=== PATIENT | male | born 1955 | race Hispanic/Latino ===

== ENCOUNTER 2016-12-14 12:52 | Emergency (ER) | payer BC ==
[2016-12-14] MEDS ORDERED: ASPIRIN 81 MG (BABY) CHEWABLE TABLET PO ONE (13:01)
[2016-12-14] MEDS ORDERED: NORMAL SALINE 10 ML SYRINGE FLUSH IVP PRN (13:01)
--- NOTE | 2016-12-14 13:01 | PDOC ---
General Adult HPI - General Chief Complaint: General Medical Stated Complaint: FEELS ANXIOUS, CAN'T TAKE A DEEP BREATH Date Seen by Provider: 12/14/16 Time Seen by Provider: 13:01 Source: POSITIVE: Patient Exam Limitations: POSITIVE: No limitations - History of Present Illness Initial Comment: Mr. Godoy is a 61-year-old man coming in to us today with difficulty breathing and anxiety. He states that he has been feeling especially anxious up with past several days. He has several stressful things going on in his personal life right now and attributes it to that. He went to an urgent care to see by getting some a small supply of anti-anxiety medicine to help him out and while there and EKG was performed. The preferred provider there thought he saw ST segment elevations and so sent Mr. Godoy here for further evaluation. Mr. Godoy does have a history of heart disease he has had stents placed 3. He had an angiogram done of to 3 months ago which showed no new disease. She denies ever having any chest pain he states that when he feels like he can't take a deep breath. He has no pleuritic chest pain no lightheadedness no nausea no vomiting. He states that he does not feel the same now as he did on prior times when he was found to have worsening ACS. Have you received a tetanus shot in the past 10 years?: Yes - Patient Home Medications Home Medications: Home Medications Nitroglycerin 1 tab BUCCAL TID PRN #25 tab 01/18/14 Aspirin [Aspir 81] 1 tab PO DAILY tab 12/07/14 Pantoprazole Sodium 1 tab PO DAILY #90 tab 03/16/16 Amlodipine Besylate 1 tab PO QD #90 tab 05/07/16 Atorvastatin Calcium 1 tab PO DAILY #90 tab 05/07/16 Metoprolol Tartrate 1 tab PO DAILY #90 tab 05/07/16 Quetiapine Fumarate [Seroquel] 800 mg PO QHS #60 tab 11/20/16 - Patient Allergies Allergies/Adverse Reactions: Allergies Allergy/AdvReac Type Severity Reaction Status Date / Time meperidine HCl [From Demerol] Allergy Severe NOT Verified 12/14/16 13:14 APPLICABLE Past Medical History - heen HEENT History: Denies History, Other (please comment) Additional HEENT History: LASIX EYE SURGERY Cardiovascular History: Hypertension, Angina, Previous CA, Hyperlipidemia Additional Cardiovasular History: STENTS X 4 WITH R CORONARY AND POST CIRCUMFLEX COMPLETELY BLOCKED 2008 Respiratory History: Denies History Gastrointestinal History: Peptic Ulcer Disease, Other (please comment) Additional Gastrointestinal History: GASTRIC BYPASS Genitourinary History: Denies History Endocrine History: Denies History Musculoskeletal History: Joint Pain, Other (please comment) Prosthesis or Implant: Yes (TITANIUM PLATE IN NECK) Additional Musculoskeletal History: CERVICAL NECK REPAIR. RIGHT SHOULDER SURGERY Neurological History: Migraines, Other (please comment) Additional Neurological History: MIGRAINES ONCE A YEAR. PT REPORTS CHRONIC INSOMNIA Blood Disorders: Anemia, Previous Bld Transfusions Psychiatric History: Depression, Anxiety Disorders, PTSD, Other (please comment) Additional Psychiatric History: INSOMNIA History of Sexually Transmitted Diseases: No Cancer History: Denies History History of MDRO: No History of Other Communicable Diseases: No Alcohol Use: Occasionally Substance Use Type: None Previous Surgical History: Yes Type / Date of Surgery: HERNIA REPAIR, CHOLECYSTECTOMY, GASTRIC BYPASS, CORONARY ARTERY STENTING,COLONOSCOPY, LASIX EYE SX, SHOULDER SCOPE, C 3,4,5 SX WITH PLATE Anesthesia Reactions: No Malignant Hyperthermia: No Significant Family History: Heart disease, COPD, Diabetes, Hypertension ROS - Limitations ROS Limitations: No Limitations Constitution: REPORTS: Denies Symptoms Cardiovascular: REPORTS: Denies Cardiac Symptoms Respiratory: REPORTS: Shortness Of Breath Neurological: REPORTS: Denies Neuro Symptoms Gastrointestinal: REPORTS: Denies GI Symptoms Endocrine: REPORTS: Denies Symptoms Musculoskeletal: REPORTS: Denies MS Symptoms Genitourinary: REPORTS: Denies Symptoms Eyes: REPORTS: Denies Symptoms ENT: REPORTS: Denies Symptoms Psychiatric: POSITIVE: Anxiety General Adult Exam - General Appearance General Appearance: POSITIVE: Alert, Cooperative, No Acute Distress - HEENT HEENT: POSITIVE: Head Inspection Nml, Eyes Inspection Nml, Ears Inspection Nml, Pharynx Inspect. Nml, PERRL, EOMI - Pupils Pupil Size: 2 mm: Bilateral - Neck Neck: POSITIVE: Normal Inspection - Respiratory Respiratory: POSITIVE: No Respiratory Distress, Breath Sounds Normal, Other (No wheezing, no crackles) - Cardiovascular Cardiovascular: POSITIVE: Regular Rate & Rhythm, No Murmur, No Gallop Peripheral Pulses: Radial (R): 2+, Radial (L): 2+, Dorsalis-pedis (R): 2+, Dorsalis-pedis (L): 2+ - Abdomen Abdomen: Soft: (All Quadrants), Denies Tenderness: (All Quadrants), No Guarding : (All Quadrants), No Rebound: (All Quadrants), No Palpable Pulse: (All Quadrants), No Palpabale Mass: (All Quadrants) - Back Back: POSITIVE: Normal Inspection - Skin Skin: POSITIVE: Normal Color, Dry, No Rash - Extremities Extremity: Non-Tender: (All Extremities), Normal ROM: (All Extremities), Normal Inspection: (All Extremities) - Neurological / Psychological Neurological: 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: 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, 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, 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 As Tested, Motor Normal, Sensation Normal General Adult Progress - Results Reviewed by me Lab Results:: Laboratory Results 12/14/16 Range/Units 13:05 WBC 4.93 (4.8-10.8) 10^3/uL RBC 5.30 (4.70-6.10) 10^6/uL Hgb 13.8 L (14.0-18.0) g/dL Hct 42.1 (42.0-52.0) % MCV 79.4 L (80-90) FL MCH 26.0 L (27-31) PG MCHC 32.8 L (33-37) g/dL RDW Std Deviation 43.7 (39-50) fL RDW Coeff of Brit 15.3 H (11.5-14.5) % Plt Count 286 (140-350) 10*3/uL MPV 9.5 (7.4-12.2) FL Immature Gran % (Auto) 1.2 (0-5) % Neut % (Auto) 49.0 L (50-80) % Lymph % (Auto) 36.9 (10-50) % Garrett % (Auto) 10.5 (5-15) % Eos % (Auto) 1.4 (0-8) % Baso % (Auto) 1.0 (0-1) % Immature Gran # (Auto) 0.06 10*3/UL Neut # (Auto) 2.41 10*3/UL Lymph # (Auto) 1.82 10*3/uL Garrett # (Auto) 0.52 (0.3-0.8) 10*3/UL Eos # (Auto) 0.07 10*3/UL Baso # (Auto) 0.05 10*3/UL WBC Morphology Comment Normal morphology (NORM) Plt Morphology Comment Normal morphology (NORM) RBC Morph Comment Normal morphology (NORM) Sodium 145 (135-145) meq/L Potassium 4.0 (3.8-5.2) meq/L Chloride 107 (98-112) meq/L Carbon Dioxide 24 (23-33) meq/L Anion Gap 14 (5-20) BUN 9 (7-22) mg/dL Creatinine 0.8 (0.70-1.50) mg/dL Estimated GFR > 60 (>60 ml/min/1.73m(2)) BUN/Creatinine Ratio 11.25 (6-20) Glucose 82 (78-110) mg/dL Calculated Osmolality 297.0 H (267-292) mOsm/kg Calcium 9.1 (8.7-10.7) mg/dL Total Bilirubin 0.6 (0.3-1.2) mg/dL AST 21 (21-57) IU/L ALT 37 (21-72) IU/L Alkaline Phosphatase 101 (38-126) IU/L Troponin I 0.000 (< 0.040) ng/mL Total Protein 7.3 (6.1-8.0) g/dL Albumin 4.1 (3.5-4.8) g/dL Globulin 3.2 (2.50-4.10) g/dL Albumin/Globulin Ratio 1.20 L (1.3-2.0) mg/g EKG Interpreted/Reviewed By Me:: Yes - Patient's Progress Re-Examine Time: 15:15 Re-Examine Comment: pt feels better after ativan. EKG and labs look good. will work towards discharge MDM / ED Course: Mr. Loaiza is a 61-year-old man coming today with anxiety and feeling like he can' t get a full breath. The EKG from clinic showed very slight ST segment elevations in leads 2 and 3, but the elevations were less than half of one small box. We repeated EKG here which I did not even show that much elevation in those same leads. Compared with old EKGs, today's EKGs look similar. Patient Care Time - Estimated PCT Patient Care Time (In Minutes): 30 Vital Signs - Recent Vital Signs Vital Signs: Vital Signs (Last 8 hours) Temp Pulse Resp BP Pulse Ox 12/14/16 12:52 98.2 F 79 20 176/104 96 - VS Reviewed Vital Signs Reviewed: Yes Discharge Clinical Impression: Anxiety Discharge Disposition: Discharged to Home Condition: Fair Prescriptions / Orders: LORazepam Tab [Ativan Tab] 1 mg PO Q4H PRN #10 tablet PRN Reason: Anxiety LORazepam Inj [Ativan Inj] 1 mg PO Q4H PRN #10 tab PRN Reason: Anxiety
[2016-12-14] MEDS ORDERED: LORazepam 2 MG/1 ML VIAL IVP ONE ×3 (13:02→14:18)
[2016-12-14 13:18] LABS: BASOPHILS # (AUTO) 0.05 10*3/UL; EOSINOPHILS # (AUTO) 0.07 10*3/UL; EOSINOPHILS % (AUTO) 1.4 % (0-8); HEMATOCRIT 42.1 % (42.0-52.0); HEMOGLOBIN 13.8 g/dL (14.0-18.0); LYMPHOCYTES # (AUTO) 1.82 10*3/uL; MEAN CORPUSCULAR HGB CONC 32.8 g/dL (33-37); MEAN CORPUSCULAR VOLUME 79.4 FL (80-90); MEAN PLATELET VOLUME 9.5 FL (7.4-12.2); MONOCYTES # (AUTO) 0.52 10*3/UL (0.3-0.8); MONOCYTES % (AUTO) 10.5 % (5-15); NEUTROPHILS # (AUTO) 2.41 10*3/UL; PLATELET MORPHOLOGY COMMENT NORMAL MORPHOLOGY (NORM); RBC MORPHOLOGY COMMENT NORMAL MORPHOLOGY (NORM); WBC MORPHOLOGY COMMENT NORMAL MORPHOLOGY (NORM)
[2016-12-14 13:37] LABS: BLOOD UREA NITROGEN 9 mg/dL (7-22); BUN/CREATININE RATIO 11.25 (6-20); CALCIUM 9.1 mg/dL (8.7-10.7); EST GLOMERULAR FILTRATION > 60 (>60 ml/min/1.73m(2))
[2016-12-14 13:38] LABS: SERUM ALBUMIN 4.1 g/dL (3.5-4.8)
[2016-12-14] MEDS ORDERED: Sodium Chloride 0.9% 1,000 ML PRIMARY IV ONE (13:42)
--- NOTE | 2016-12-14 13:56 | EKG ---
[address] [address] Measurements Intervals [employer] [place] [employer] Rate: 71 P: 57 LA: 143 QRS: 50 QRSD: 120 T: 89 QT: 416 QTc: 438 Interpretive Statements SINUS RHYTHM NONSPECIFIC T-WAVE ABNORMALITY Compared to ECG 12/14/2016 12:23:12 T-wave abnormality now present Electronically Signed On 12-14-16 17:58:30 MDT by Michael Guerrero [id number]
[2016-12-14 13:58] VITALS: RESP 20; TEMP 98.2
--- NOTE | 2016-12-14 14:12 | DI ---
AP CHEST X-RAY, 12/14/2016 1:01 PM : Clinical History: Chest pain. Previous Exam: 09/11/2015. There is no acute soft tissue or bony abnormality. Heart size is normal. Lungs are clear. Mediastinal structures are normal. There are no pulmonary nodules. Reading: Normal chest x-ray. There has been no interval change.
[2016-12-14] MEDS ORDERED: Sodium Chloride 0.9% 1,000 ML ONE (17:50)
== END 2016-12-14 15:24 | disposition home or self-care (01) ==
LOC: ER 12:52
DX: F41.1 Generalized anxiety disorder (principal); I11.9 Hypertensive heart disease without heart failure; I25.10 Atherosclerotic heart disease of native coronary artery without angina pectoris; R06.00 Dyspnea, unspecified
CPT/HCPCS: 71010; 80053; 84484; 85025; 93005; 93010; 96374; 96376; 99284; J2060; J7030

== ENCOUNTER → 2016-12-14 | Outpatient (CLI) | payer BC ==
--- NOTE | 2016-12-14 12:25 | EKG ---
[address] [address] Measurements Intervals [place] Rate: 67 P: 63 SC: 142 QRS: 49 QRSD: 103 T: 91 QT: 407 QTc: 423 Interpretive Statements SINUS RHYTHM NONSPECFIC T WAVE ABNORMALITY LEAD 1 AND AVL Compared to ECG 09/11/2015 19:14:53 T waves now upright in precordial leads Electronically Signed On 12-14-16 18:07:27 MDT by Michael Guerrero [id number]
== END ==
LOC: MOB LAB 12:18
PROVIDERS: ATTEND Physician Assistant Medical
DX: R06.02 Shortness of breath (principal); Z87.891 Personal history of nicotine dependence
CPT/HCPCS: 93005; 93010

== ENCOUNTER 2017-03-06 15:23 | Emergency (ER) | payer BC, OTHER ==
[2017-03-06 16:00] VITALS: RESP 12; TEMP 97.1
--- NOTE | 2017-03-06 16:42 | PDOC ---
Lower Extremity Injury HPI - General Chief Complaint: Lower Extremity Problem/Injury Stated Complaint: TWISTED LEFT KNEE AT WORK Date Seen by Provider: 03/06/17 Time Seen by Provider: 15:35 Source: POSITIVE: Patient Exam Limitations: POSITIVE: No limitations Nurse's Notes Reviewed & Considered: Yes - History of Present Illness Initial Comments: The patient is a 61-year-old male. 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 He states that this morning around 9 AM he stepped out of the ambulance and slipped. It his left knee was forced into inversion. He has noted some discomfort to the medial aspect of the left knee since. He states he can walk without much discomfort, but when he turns his foot into inversion and bears weight he has some discomfort over the medial aspect of the left knee. He's had no swelling. No sensory or motor symptoms. 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) Severity: Mild Quality: REPORTS: "Pain" (Medial aspect left knee as above) Location at Time of Onset: REPORTS: Work Context of Injury: REPORTS: Twist Location of Injury: REPORTS: Knee (L) Modifying Factors: improves with: Walking Associated Symptoms: DENIES: Unable to Bear Weight, Snapping, Popping Sensation , Became Dizzy, Fainted, Seizure, Other Any Prior Injuries Related to Current Complaint?: No - Patient Home Medications Home Medications: Home Medications Nitroglycerin 1 tab BUCCAL TID PRN #25 tab 01/18/14 Aspirin [Aspir 81] 1 tab PO DAILY tab 12/07/14 Pantoprazole Sodium 1 tab PO DAILY #90 tab 03/16/16 Amlodipine Besylate 1 tab PO QD #90 tab 05/07/16 Atorvastatin Calcium 1 tab PO DAILY #90 tab 05/07/16 Metoprolol Tartrate 1 tab PO DAILY #90 tab 05/07/16 Quetiapine Fumarate [Seroquel] 800 mg PO QHS #180 tab 01/07/17 - Patient Allergies Allergies/Adverse Reactions: Allergies Allergy/AdvReac Type Severity Reaction Status Date / Time meperidine HCl [From Demerol] Allergy Severe NOT Verified 03/06/17 15:51 APPLICABLE Past Medical History - heen HEENT History: Denies History, Other (please comment) Additional HEENT History: LASIX EYE SURGERY Cardiovascular History: Hypertension, Angina, Previous MA, Hyperlipidemia Additional Cardiovasular History: STENTS X 4 WITH R CORONARY AND POST CIRCUMFLEX COMPLETELY BLOCKED 2008 Respiratory History: Denies History Gastrointestinal History: Peptic Ulcer Disease, Other (please comment) Additional Gastrointestinal History: GASTRIC BYPASS Genitourinary History: Denies History Endocrine History: Denies History Musculoskeletal History: Joint Pain, Other (please comment) Prosthesis or Implant: Yes (TITANIUM PLATE IN NECK) Additional Musculoskeletal History: CERVICAL NECK REPAIR. RIGHT SHOULDER SURGERY Neurological History: Migraines, Other (please comment) Additional Neurological History: MIGRAINES ONCE A YEAR. PT REPORTS CHRONIC INSOMNIA Blood Disorders: Anemia, Previous Bld Transfusions Psychiatric History: Depression, Anxiety Disorders, PTSD, Other (please comment) Additional Psychiatric History: INSOMNIA History of Sexually Transmitted Diseases: No Cancer History: Denies History In Past Year Been Physically Harmed or Verbally Threatened: No History of MDRO: No History of Other Communicable Diseases: No Tobacco Use: Former Smoker Alcohol Use: Occasionally Substance Use Type: None Previous Surgical History: Yes Type / Date of Surgery: HERNIA REPAIR, CHOLECYSTECTOMY, GASTRIC BYPASS, CORONARY ARTERY STENTING,COLONOSCOPY, LASIX EYE SX, SHOULDER SCOPE, C 3,4,5 SX WITH PLATE Anesthesia Reactions: No Malignant Hyperthermia: No Significant Family History: Heart disease, COPD, Diabetes, Hypertension Past Medical History Reviewed: Reviewed - No Changes ROS - Limitations ROS Limitations: No Limitations Constitution: REPORTS: Denies Symptoms Cardiovascular: REPORTS: Denies Cardiac Symptoms Respiratory: REPORTS: Denies Resp Symptoms Neurological: REPORTS: Denies Neuro Symptoms Gastrointestinal: REPORTS: Denies GI Symptoms Endocrine: REPORTS: Denies Symptoms Musculoskeletal: REPORTS: Joint Pain (Left knee as above) Genitourinary: REPORTS: Denies Symptoms Eyes: REPORTS: Denies Symptoms ENT: REPORTS: Denies Symptoms Skin: REPORTS: Denies Skin Symptoms Lympathic: REPORTS: Denies Lympathic Symptoms Immunologic: POSITIVE: Denies Symptoms Psychiatric: POSITIVE: Denies Psych Symptoms Lower Ext Complaint Exam - General Appearance General Appearance: POSITIVE: Alert, Cooperative, No Acute Distress. NEGATIVE: No Evidence of Trauma - Extremities Lower Extremity: POSITIVE: Normal ROM, Normal Color, Normal Temperature, Skin Intact, No Joint Swelling, No Evidence of Ischemia, Stable, Soft Tissue Tenderness, Bony Tenderness, See Diagram. NEGATIVE: Swelling, Ecchymosis, Erythema, Deformity, Pulse Deficit, Limited ROM, Laxity of Ligaments, Joint Effusion, Hip Pain on Leg Movement Lower Extremity Ligament: POSITIVE: Pain on Medial Stress, Other (Some pain with eversion of right foot over the medial aspect of left knee). NEGATIVE: Pain on Anterior Drawer, Pain on Posterior Drawer, Laxity on Anterior Drawer, Laxity w/Posterior Drawer, Pain on Lateral Stress, Laxity on Medial Stress, Laxity on Lateral Stress Neurovascular/Tendon: POSITIVE: Sensation Normal, Motor Normal, No Vascular Compromise Skin: POSITIVE: Warm, Dry - Respiratory / CVS Respiratory / CVS: POSITIVE: Chest Non Tender, No Ecchymosis, Breath Sounds Normal, No Respiratory Distress, Heart Sounds Normal, Regular Rate/Rhythm Peripheral Pulses: Radial (R): 2+, Radial (L): 2+, Dorsalis-pedis (R): 2+, Dorsalis-pedis (L): 2+ Images - Lower Extremities Lower Extremities: 1 - Area of discomfort Lower Ext Complaint Progress - Results Reviewed by me Xrays/CTs/US Reviewed by me: Yes Discussed with Radiologist: No Radiology Findings: X-ray left knee normal by my interpretation; radiologist interpretation pending - Patient's Progress Pain Medication Addressed: POSITIVE: Yes (Recommended Advil or Tylenol) School/Work Release Addressed: POSITIVE: Yes (Released to return to full duty) Re-Examine Time:: 16:35 Status: POSITIVE: Unchanged - Consult Counseled: POSITIVE: Patient, RE: Radiology Results, RE: DX, RE: Need for F/U Patient Care Time - Estimated PCT Patient Care Time (In Minutes): 25 Vital Signs - Recent Vital Signs Vital Signs: Vital Signs (Last 8 hours) Temp Pulse Resp BP Pulse Ox 03/06/17 15:24 97.1 F 72 12 110/80 96 - VS Reviewed Vital Signs Reviewed: Yes Discharge Clinical Impression: Knee MCL sprain Discharge Disposition: Discharged to Home Condition: Stable Patient Instructions Given at Discharge: Knee Sprain (ED) Additional Instructions: X-ray of your left knee is normal. I believe you have a mild sprain of the medial collateral ligament of your knee. Wear knee support as necessary. Advil or Tylenol for discomfort. Cool compresses. You may return to work. Return anytime if condition worsens. Follow-up with your primary care provider. Follow Up With: BERTHA PAIZ [Primary Care Provider] - (Instructions as above. Follow-up with your primary care provider. Return as necessary.)
--- NOTE | 2017-03-07 08:56 | DI ---
History: Knee injury Comparison: None Findings: No fracture. No joint effusion. No malalignment. Minimal osteophyte formation around the lateral articular margin of the patella. Impression: Minimal degenerative change
== END 2017-03-06 16:38 | disposition home or self-care (01) ==
LOC: ER 15:23
DX: S83.412A Sprain of medial collateral ligament of left knee, initial encounter (principal); W17.89XA Other fall from one level to another, initial encounter; Y99.0 Civilian activity done for income or pay
CPT/HCPCS: 73562; 99283